=== PATIENT | male | born 1945 | race Caucasian/White ===

== ENCOUNTER 2018-07-15 13:59 | Emergency (ER) | payer MEDICARE, OTHER ==
[2018-07-15] MEDS ORDERED: DEXAMETHASONE SOD PHOSPHATE 10MG/ML 1ML VIAL ONE (14:54)
== END 2018-07-15 15:00 | disposition home or self-care (01) ==
LOC: EDH 13:59
DX: M76.61 Achilles tendinitis, right leg (principal); I10 Essential (primary) hypertension; E07.9 Disorder of thyroid, unspecified
CPT/HCPCS: 73610; 96372; 99283; J1100